=== PATIENT | female | born 1945 | race African-American/Black ===

== ENCOUNTER 2020-05-26 17:22 | Emergency (ER) | payer OTHER, MEDICARE ==
[~2020-05-26] VITALS: Ht 167.6 cm; Wt 77.3 kg
[~2020-05-26 17:22] MED LIST: AMLO1TAB95 PO; ASPI-630 PO; ATOR10TA PO
[2020-05-26 18:07] VITALS: BP 142/75
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
[2020-05-26] MEDS ORDERED: ORPH100T PO (19:48)
[2020-05-26] MEDS ORDERED: ACET1TAB33 PO (19:48)
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
== END 2020-05-26 20:00 | disposition home or self-care (01) ==
LOC: ER 17:22
DX: S16.1XXA Strain of muscle, fascia and tendon at neck level, initial encounter (principal); S80.02XA Contusion of left knee, initial encounter; M54.5 Low back pain; E78.00 Pure hypercholesterolemia, unspecified; I10 Essential (primary) hypertension; V49.9XXA Car occupant (driver) (passenger) injured in unspecified traffic accident, initial encounter; Y93.89 Activity, other specified; Y92.481 Parking lot as the place of occurrence of the external cause; Y99.8 Other external cause status
CPT/HCPCS: 73562; 99283

== ENCOUNTER 2020-07-12 17:11 | Emergency (ER) | payer OTHER, MEDICARE ==
[~2020-07-12] VITALS: Ht 167.6 cm; Wt 74.2 kg
[~2020-07-12 17:11] MED LIST changes: +ACET1TAB33 PO; +ORPH100T PO
[2020-07-12 17:53] VITALS: BP 138/72
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
[2020-07-12] MEDS ORDERED: ORPH100T PO ×2 (20:58→21:05)
[2020-07-12] MEDS ORDERED: MELO15TA23 PO ×2 (20:58→21:05)
[2020-07-12] MEDS ORDERED: ACET1TAB33 PO ×2 (20:58→21:05)
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
== END 2020-07-12 21:15 | disposition home or self-care (01) ==
LOC: ER 17:11
DX: S16.1XXA Strain of muscle, fascia and tendon at neck level, initial encounter (principal); S39.012A Strain of muscle, fascia and tendon of lower back, initial encounter; M25.512 Pain in left shoulder; M79.604 Pain in right leg; M79.605 Pain in left leg; I10 Essential (primary) hypertension; E78.00 Pure hypercholesterolemia, unspecified; V98.8XXA Other specified transport accidents, initial encounter; Y93.89 Activity, other specified; Y92.413 State road as the place of occurrence of the external cause; Y99.8 Other external cause status
CPT/HCPCS: 72125; 72128; 72131; 73030; 99285